=== PATIENT | male | born 1990 | race African-American/Black ===

== ENCOUNTER 2017-12-18 11:49 | Inpatient (IN) ==
--- NOTE | 2017-12-18 15:43 | P.CONIM ---
History of Present Illness Service: [facility] Reason for Consult: Hypertension Primary Care Provider: UNKNOWN History of Present Illness: 27-year-old male admitted to the psychiatric unit for psychosis. Hospitalist service consulted for hypertension. The patient is currently paranoid and history is limited. Regarding hypertension, the patient reports he was told he had hypertension in the past but he never took any medications. He is somewhat paranoid and does not want to talk about the circumstances regarding his admission to the hospital. Review of Systems other (Patient is uncooperative.) [facility] - Medical History Medical History: Medical History (Last Updated 12/18/17 @ 15:38 by Michael Goodwin MD) Hypertension - Surgical History Surgical History: Surgical History (Last Updated 12/18/17 @ 15:38 by Michael Goodwin MD) H/O abdominal surgery - Family History Family History: Family History (Last Updated 12/18/17 @ 15:38 by Michael Goodwin MD) Other Family history non-contributory - Tobacco History Smoking Status: Refused to answer - Alcohol History How Often Do You Have a Drink Containing Alcohol: Unable to Obtain - Substance Use History Substance History: Unable to Obtain - Travel History Recent Travel in the [place] Within the Last 8 Weeks: No Recent Travel Out of the Country Within the Last 8 Weeks: No Medications and Allergies Allergies Allergy/AdvReac Type Severity Reaction Status Date / Time No Known Allergies Allergy Unverified 12/18/17 14:15 Exam Vital signs: Vital Signs 12/18/17 14:04 Temperature 98.2 F Pulse Rate 78 Respiratory Rate 18 Blood Pressure 176/86 H Pulse Oximetry 99 Intake & Output 12/17/17 12/18/17 12/18/17 18:59 06:59 18:59 Weight 118 kg Other: Weight On Admission 118 kg Narrative: GENERAL: Obese male in no acute distress, defiant CARDIOVASCULAR: Normal rate and regular rhythm without murmurs, gallops, or rubs. RESPIRATORY: Good respiratory efforts. Breath sounds equal and clear to auscultation bilaterally. GASTROINTESTINAL: Abdomen soft, non-tender, non-distended. Normal active bowel sounds MUSCULOSKELETAL: Extremities without cyanosis, or edema. NEURO: Alert & Oriented x4 to person, place, time, situation. Moves all ext x4 PSYCH: Irritable mood Assessment and Plan - Plan 27-year-old male admitted to the psychiatric unit for psychosis. Found to have elevated blood pressure. Patient reports he was told he had borderline hypertension in the past but he never took any medications. Psychosis: - Management per psychiatry Possible untreated hypertension: -He is currently very defiant and not amenable to start medications. I suspect his blood pressure will likely improve once psychosis is better controlled. - For now my recommendations is to continue to monitor. If his blood pressure is consistently above 160/90 and he is agreeable to treatment, we would consider starting him on low-dose amlodipine 5 mg daily. For now will order clonidine as needed for blood pressure greater than 180/100. He is stable from a medical standpoint, therefore will sign off. Discussed Condition With: RN and patient
[2017-12-18] MEDS ORDERED: Aluminum/Magnesium/Simethacone Susp 30 ML UDC PO PRN (15:51)
[2017-12-18] MEDS ORDERED: Acetaminophen 325 MG Tablet PO PRN (15:51)
[2017-12-18] MEDS ORDERED: Haloperidol Inj 5 MG/ML Ampul IM ONE ×2 (20:00→21:00)
[2017-12-18] MEDS: Senna/Docusate Sodium 8.6/50 MG Tablet PO SCH (22:00)
[2017-12-18] MEDS: Ibuprofen 600 MG Tablet PO SCH (22:02)
[2017-12-19] MEDS: Ibuprofen 600 MG Tablet PO SCH (05:19)
[2017-12-19 08:44] LABS: Calcium 9.1 mg/dL (8.5-10.1); Carbon Dioxide 30.3 meq/L (21.0-32.0); Potassium 3.5 meq/L (3.5-5.1)
[2017-12-19 08:47] LABS: Chol/HDL Ratio 4.71 Ratio; HDL Cholesterol 47.7 mg/dL (40.0-60.0)
--- NOTE | 2017-12-19 09:30 | P.HPPSY ---
Provisional Diagnosis Admission Date: December 18, 2017 13:58 [place] I.: 1. Brief psychotic disorder Rule out primary psychotic illness or mood disorder with psychotic features Rule out adjustment reaction with other symptoms Rule out substance-induced psychotic disorder Rule out psychosis due to a general medical or neurological condition 2. Cannabis abuse [place] II.: Deferred Competence Certification of Person's Competence To Provide Express and Informed Consent I have personally examined Chandni Mac, a person being served at [facility] on, December 19, 2017 0930. Express and informed consent means consent voluntarily given in writing, by a competent person, after sufficient explanation and disclosure of the subject matter involved to enable the person to make a knowing and willful decision without any element of force, fraud, deceit, duress, or other form of constraint or coercion. This person is 18 years of age or older, is not now known to be incompetent to consent to treatment with a guardian advocate, and does not have a health care surrogate or proxy currently making medical treatment decisions. I have found this person to be one of the following: [] Competent to provide express and informed consent, as defined above, for voluntary admission to this facility and is competent to provide express and informed consent for treatment. He/she has the consistent capacity to make well reasoned, willful, and knowing decisions concerning his or her medical or mental health treatment. The person fully and consistently understands the purpose of the admission for examination/placement and is fully capable of personally exercising all rights assured [place] [X] Incompetent to provide express and informed consent to voluntary admission, and this is incompetent to provide express and informed consent to treatment. The person must be transferred to involuntary status and a petition for a guardian advocate filed with the Circuit Court. [] Refusing to provide express and informed consent to voluntary admission but is competent to provide express and informed consent for treatment. The person must be discharged or transferred to involuntary status. Form shall be completed within 24 hours of a person's arrival at the receiving facility and filed in the clinical record of each person: 1. Admitted on a voluntary basis 2. Permitted to provide express and informed consent to his/her own treatment 3. Allowed to transfer from involuntary to voluntary status 4. Prior to permitting a person to consent to his or her own treatment after having been previously found incompetent to consent to treatment. History of Present Illness Capacity: Lacks capacity Chief Complaint: Psychosis History of Present Illness: Mr. Mac is a 27 year-old male of uncertain past psychiatric history transferred from [facility] under a [place] act. Documentation from outside hospital reviewed. Patient presented there with reports of no sleep times 3 days. Stressor was apparently recent passing of mother and aunt. Reviewing our electronic medical record, I see no previous psychiatric visits within our system. Patient seen and examined with nurse and therapist. Chart reviewed. Case discussed with nursing staff. On my examination today, the patient presents as irritable and paranoid. He is fairly disheveled. He rambles on nondenominational themes. At one point he yells at unseen demons, saying "shut up demons! Satan! " He tells me "in a free world this stuff is about choice. I'm being tested." He denies suicidal ideation but says "if I had a gun right now, I'd kill y' all right now." He endorses hallucinations "for a while" but cannot describe the content of these hallucinations. He does appear internally stimulated. Affect is irritable and dysphoric. Psychiatric interview is limited because of the patient's degree of psychiatric symptomatology. No acute physical complaints. I returned to the unit in response to a CODE MESSER called on this patient and found him agitated and psychotic, pacing in the hallway. He appears to try to swat at nurse when she endeavors to medicate him with Ativan for CIWA. I ordered patient medicated with Haldol, Ativan and Benadryl IM ETO to good effect. Past psychiatric history: Patient is likely an unreliable historian. When asked about a history of psychiatric diagnosis he replies "not that I know of." He does endorse a history of outpatient psychiatric care. He also endorses a history of suicide attempts but cannot provide specifics. He is noncommittal when asked about a history of violence. He denies a history of psychiatric admissions. Family history: The patient cannot provide any family psychiatric history. Chemical dependency history: The patient admits to abuse of cannabis. When asked specifically about synthetic drugs such as flakka or K2/spice, the patient does seem to indicate that he may have tried these agents in the past. Regarding alcohol the patient says "I drink a lot." He is unable to tell me if he has a history of DTs or seizures. Social history: Patient unable to provide due to degree of psychiatric symptomatology. Past medical history: Patient unable to provide due to degree of psychiatric symptomatology. Allergies: No reported allergies. I endeavored to obtain collateral information from the patient's father at both numbers listed in the EMR. The home number kept wringing with no opportunity to leave a voicemail. The work number was answered by manager of international who reported that no one by father's name worked at that business. I was able to reach patient's , Mis Grider at [phone]. She relates that patient had one previous episode of what sounds like psychosis or perhaps delirium in connection with pain medications prescribed for knee pain in 2011. Otherwise, patient has no previous psychiatric history, nor is there any family history of psychiatric illness. does not suspect significant contribution from substance use. She notes that patient began to decompensate last Tuesday after learning that his aunt, who several years ago, may have from a drug overdose (although Ms. Grider does not believe this is true, patient was reportedly told this by a cousin). After learning of this information, patient began to sleep poorly and displayed a nondenominational preoccupation in excess of his subculture's norms. He reportedly began to believe that family members were in league with Luciana. is willing to act as HCS and provides consent for medications and treatment as outlined below. She notes that patient has metal in wrist and knee and so MRI likely is not possible. Ms. Grider does request to teleconference in another relative who works as a [employer] counselor, Areli, towards the end of the conversation to assist Ms. Grider in her decision-making. In total, I spent ~22min in telephone consultation with patient's . - Inpatient Certification I certify that the inpatient services were ordered in accordance with Medicare regulations governing the order. This includes certification that hospital inpatient services are reasonable and necessary and in the case of services not specified as inpatient-only under 42 CFR 419.22(n), that they are appropriately provided as inpatient services in accordance to with the 2-midnight benchmark under 43 CFR 412.3(e) I certify that inpatient psychiatric hospital services are medically necessary. Evaluation and treatment and/or diagnostic testing are expected to improve the patient's condition. The patient needs on a daily basis, active treatment furnished directly by or requiring the supervision of inpatient psychiatric facility personnel. Estimated Total Length of Stay (Days): 7 Plans for Post Hospital Care: Not yet determined [facility] - Medical History Medical History: Medical History (Last Updated 12/18/17 @ 15:38 by Michael Goodwin MD) Hypertension - Surgical History Surgical History: Surgical History (Last Updated 12/18/17 @ 15:38 by Michael Goodwin MD) H/O abdominal surgery - Family History Family History: Family History (Last Updated 12/18/17 @ 15:38 by Michael Goodwin MD) Other Family history non-contributory - Tobacco History Smoking Status: Refused to answer - Alcohol History How Often Do You Have a Drink Containing Alcohol: Unable to Obtain - Substance Use History Substance History: Unable to Obtain - Travel History Recent Travel in the [facility] Within the Last 8 Weeks: No Recent Travel Out of the Country Within the Last 8 Weeks: No Quality Measures - Psychiatric History Psychological trauma history: Unable to obtain from patient due to psychiatric symptomatology - Patient Strengths Patient's strengths (minimum of 2): In a monitored setting. Supportive family. Medications and Allergies Active Medications: Active Medications Acetaminophen (Tylenol) 650 mg PO Q4H PRN PRN Reason: Pain 1-5 or Temp >101F Al Hydrox/Mg Hydrox/Simethicone (Mag-Al Plus Susp Liq) 30 ml PO Q6H PRN PRN Reason: DYSPEPSIA Clonidine HCl (Catapres) 0.1 mg PO Q6H PRN PRN Reason: SEE LABEL COMMENTS Diphenhydramine HCl (Benadryl) 50 mg PO HS PRN PRN Reason: INSOMNIA Ibuprofen (Motrin) 600 mg PO Q8HR [facility] Last Admin: 12/19/17 05:19 Dose: 600 mg Nicotine (Habitrol 21 Mg Patch.24 Hr) 1 patch T-DERMAL DAILY [facility] Last Admin: 12/18/17 16:30 Dose: Not Given Patch Removal (Remove Old Patch) 1 each T-DERMAL DAILY [facility] Senna/Docusate Sodium (Sommer-Colace) 1 tab PO BID [facility] Last Admin: 12/18/17 22:00 Dose: Not Given Allergies Allergy/AdvReac Type Severity Reaction Status Date / Time No Known Allergies Allergy Unverified 09/30/18 14:15 Results - Labs CBC & Chem 7: 12/19/17 07:25 Labs: Laboratory Results - last 24 hr 12/19/17 07:25 Sodium 140 Potassium 3.5 Chloride 101 Carbon Dioxide 30.3 Anion Gap 9 BUN 14 Creatinine 1.25 Estimated GFR 83 L Random Glucose 87 Calcium 9.1 Triglycerides 65 Cholesterol 225 H LDL Cholesterol, Calc 164 H HDL Cholesterol 47.7 Cholesterol/HDL Ratio 4.71 Labs from outside hospital reviewed: CBC unremarkable. BMP unremarkable. LFTs reveals mild transaminitis with AST of 45. Toxicology positive for cannabinoids. Alcohol level undetectable. Exam Vital signs: Vital Signs 12/18/17 14:04 12/19/17 06:00 Temperature 98.2 F 97.9 F Pulse Rate 78 109 H Respiratory Rate 18 17 Blood Pressure 176/86 H 181/102 H Pulse Oximetry 99 98 Intake & Output 12/18/17 12/19/17 12/19/17 18:59 06:59 18:59 Weight 118 kg Other: Weight On Admission 118 kg Narrative: Physical examination completed by hospitalist oracle distribution consultant. On my examination today, the patient appears to be in no acute physical distress. No motor abnormalities noted. No signs of intoxication or withdrawal noted. Labs and vital signs reviewed. Mental Status Examination Appearance: Disheveled Consciousness: Alert, Vigilant Orientation: Person (At least) Motor Activity: Normal gait, Other (No motor abnormalities noted.) Speech: Other (Inappropriately loud) Language: Other (Rambling) Fund of Knowledge: Inadequate Attention and Concentration: Easily distracted Memory: Impaired (Psychosis interferes) Mood: Angry, Irritable Affect: Irritable, Other (Dysphoric) Thought Process & Associations: Tangential Thought Content: Hallucinations, Delusional Hallucination Type: Other (Endorses vague hallucinations as noted above and does appear internally stimulated) Delusion Type: Paranoid, Other (Confucianist) Suicidal Ideation: No Suicidal Plan: No Suicidal Intention: No Homicidal Ideation: Yes Homicidal Plan: Yes Homicidal Intention: No Insight: Poor Judgment: Poor Assessment and Plan - Assessment (1) Brief psychotic disorder Code(s): F23 - Brief psychotic disorder Status: Acute (2) Cannabis abuse Code(s): F12.10 - Cannabis abuse, uncomplicated Status: Acute - Plan Plan: 27-year-old male with psychiatric history as detailed above who presents in transfer from outside hospital under a [place] act. On my examination today, the patient presents as floridly psychotic and has been apparently decompensating over the last several days per collateral information from patient's . He does have a history of 1 previous questionable episode of psychosis or perhaps delirium several years ago in response to pain medications. Differential diagnosis for her current episode of psychosis is as listed above. Patient requires psychiatric hospitalization at this time for safety, observation and stabilization. Admit inpatient. Involuntary status. I have completed first opinion. Consult for second opinion. Request healthcare surrogate and guardian advocate. For empiric management of patient's psychosis I will initiate Zyprexa 10 mg at bedtime by mouth with IM backup. Check EKG for QTc. Atarax as needed for anxiety. Melatonin as needed for sleep. I have reviewed the R/B/A for medications with patient's healthcare surrogate including the metabolic and motor side effects of antipsychotic therapy. CIWA scale with Ativan for the management of any withdrawal. Thiamine and folate. Seizure precautions. Hospitalist input appreciated. Initiate psychosis workup including Head CT and laboratory workup. Vitals every shift. Counselor to see. Disposition planning. Estimated length of stay: 5-7 days. Justification for Continued Inpatient Stay: See above Discharge Planning: Pending psychiatric stabilization Request Healthcare Surrogate/Guardian Advocate?: Yes
[2017-12-19] MEDS ORDERED: LORazepam 1 MG Tablet PO PRN (09:42)
[2017-12-19] MEDS ORDERED: Haloperidol Inj 5 MG/ML Ampul IV.PUSH PRN (09:42)
[2017-12-19 10:12] LABS: Albumin 4.3 g/dL (3.4-5.0)
[2017-12-19 10:24] LABS: Thyroid Stimulating Hormone 0.852 uIU/mL (0.358-3.740)
[2017-12-19] MEDS ORDERED: Haloperidol Inj 5 MG/ML Ampul IM ONE (10:25)
[2017-12-19] MEDS: Senna/Docusate Sodium 8.6/50 MG Tablet PO SCH ×2 (12:30→20:41)
--- NOTE | 2017-12-19 15:22 | P.CONPSY ---
Provisional Diagnosis Admission Date: December 18, 2017 13:58 [place] I.: 1. Brief psychotic disorder Rule out primary psychotic illness or mood disorder with psychotic features Rule out adjustment reaction with other symptoms Rule out substance-induced psychotic disorder Rule out psychosis due to a general medical or neurological condition 2. Cannabis abuse [place] II.: Deferred History of Present Illness Service: Psychiatry Primary Care Provider: UNKNOWN History of Present Illness: Mr. Mac is a 27 year-old male of uncertain past psychiatric history transferred from [facility] under a [place] act. Documentation from outside hospital reviewed. Patient presented there with reports of no sleep times 3 days. Stressor was apparently recent passing of mother and aunt. Reviewing our electronic medical record, I see no previous psychiatric visits within our system.Patient seen and examined with nurse and therapist. Chart reviewed. Case discussed with nursing staff. On my examination today, the patient presents as irritable and paranoid. He is fairly disheveled. He rambles on yazidism themes. At one point he yells at unseen demons, saying "shut up demons! Satan!" He tells me "in a free world this stuff is about choice. I'm being tested." He denies suicidal ideation but says "if I had a gun right now, I'd kill y'all right now." He endorses hallucinations "for a while" but cannot describe the content of these hallucinations. He does appear internally stimulated. Affect is irritable and dysphoric. Psychiatric interview is limited because of the patient's degree of psychiatric symptomatology. No acute physical complaints. I returned to the unit in response to a CODE MESSER called on this patient and found him agitated and psychotic, pacing in the hallway. He appears to try to swat at nurse when she endeavors to medicate him with Ativan for CIWA. I ordered patient medicated with Haldol, Ativan and Benadryl IM ETO to good effect. The patient is a 27-year-old -[place] man, with an unknown psychiatric history, who was admitted in [place] transfer from an external hospital on the [place] act. He was consulted to me for second opinion. I found the patient in his room, deeply asleep, he was medicated recently due to aggressive behavior. He was arousable, but quite disorganized, not making any sense, very incoherent and disorganized unable to provide any meaningful information for the second opinion, but evidently psychotic. [facility] - Medical History Medical History: Medical History (Last Updated 12/18/17 @ 15:38 by Michael Goodwin MD) Hypertension - Surgical History Surgical History: Surgical History (Last Updated 12/18/17 @ 15:38 by Michael Goodwin MD) H/O abdominal surgery - Family History Family History: Family History (Last Updated 12/18/17 @ 15:38 by Michael Goodwin MD) Other Family history non-contributory - Tobacco History Smoking Status: Refused to answer - Alcohol History How Often Do You Have a Drink Containing Alcohol: Unable to Obtain - Substance Use History Substance History: Unable to Obtain - Travel History Recent Travel in the [place] Within the Last 8 Weeks: No Recent Travel Out of the Country Within the Last 8 Weeks: No Medications and Allergies Active Medications: Active Medications Acetaminophen (Tylenol) 650 mg PO Q4H PRN PRN Reason: Pain 1-5 or Temp >101F Al Hydrox/Mg Hydrox/Simethicone (Mag-Al Plus Susp Liq) 30 ml PO Q6H PRN PRN Reason: DYSPEPSIA Clonidine HCl (Catapres) 0.1 mg PO Q6H PRN PRN Reason: SEE LABEL COMMENTS Diphenhydramine HCl (Benadryl) 50 mg PO HS PRN PRN Reason: INSOMNIA Flumazenil (Romazecon Inj) 0.2 mg IV.PUSH Q1M PRN PRN Reason: OVERSEDATION Folic Acid (Folic Acid) 1 mg PO DAILY [facility] Stop: 12/25/17 08:59 Haloperidol Lactate (Haldol Inj) 1 mg IV.PUSH Q15M PRN PRN Reason: for severe agitation Hydroxyzine HCl (Atarax) 50 mg PO Q6H PRN PRN Reason: ANXIETY Ibuprofen (Motrin) 600 mg PO Q8HR [facility] Last Admin: 12/19/17 05:19 Dose: 600 mg Lorazepam (Ativan) 1 mg PO Q4H PRN PRN Reason: for CIWA 8-10 Lorazepam (Ativan) 2 mg PO Q2H PRN PRN Reason: for CIWA 11-14 Lorazepam (Ativan Inj) 2 mg IV.PUSH Q1H PRN PRN Reason: for CIWA 15-20 Lorazepam (Ativan Inj) 2 mg IV.PUSH Q15M PRN PRN Reason: for CIWA > 20 Lorazepam (Ativan Inj) 1 mg IV.PUSH Q4H PRN PRN Reason: for CIWA 8-10 Lorazepam (Ativan Inj) 2 mg IV.PUSH Q2H PRN PRN Reason: for CIWA 11-14 Melatonin (Melatonin) 5 mg PO HS PRN PRN Reason: INSOMNIA Multivitamins/Minerals (Theragran-M) 1 tab PO DAILY [facility] Stop: 12/25/17 08:59 Nicotine (Habitrol 21 Mg Patch.24 Hr) 1 patch T-DERMAL DAILY [facility] Last Admin: 12/19/17 12:29 Dose: Not Given Olanzapine (Zyprexa Inj) 10 mg IM HS PRN PRN Reason: REFUSES PO ZYPREXA Olanzapine (Zyprexa Zydis Odt) 10 mg PO HS OSVALDO Patch Removal (Remove Old Patch) 1 each T-DERMAL DAILY [facility] Last Admin: 12/19/17 12:30 Dose: Not Given Senna/Docusate Sodium (Sommer-Colace) 1 tab PO BID [facility] Last Admin: 12/19/17 12:30 Dose: Not Given Thiamine HCl (Vitamin B1) 100 mg PO DAILY [facility] Allergies Allergy/AdvReac Type Severity Reaction Status Date / Time No Known Allergies Allergy Unverified 12/18/17 14:15 Exam Vital signs: Vital Signs 12/19/17 06:00 Temperature 97.9 F Pulse Rate 109 H Respiratory Rate 17 Blood Pressure 181/102 H Pulse Oximetry 98 Intake & Output 12/18/17 12/19/17 12/19/17 18:59 06:59 18:59 Weight 118 kg Other: Weight On Admission 118 kg Mental Status Examination Appearance: Disheveled Consciousness: Alert, Vigilant Orientation: Person (At least) Motor Activity: Normal gait, Other (No motor abnormalities noted.) Speech: Other (Inappropriately loud) Language: Other (Rambling) Fund of Knowledge: Inadequate Attention and Concentration: Easily distracted Memory: Impaired (Psychosis interferes) Mood: Angry, Irritable Affect: Irritable, Other (Dysphoric) Thought Process & Associations: Tangential Thought Content: Hallucinations, Delusional Hallucination Type: Other (Endorses vague hallucinations as noted above and does appear internally stimulated) Delusion Type: Paranoid, Other (Voodoo) Suicidal Ideation: No Suicidal Plan: No Suicidal Intention: No Homicidal Ideation: Yes Homicidal Plan: Yes Homicidal Intention: No Insight: Poor Judgment: Poor Assessment and Plan - Assessment (1) Brief psychotic disorder Code(s): F23 - Brief psychotic disorder Status: Acute (2) Cannabis abuse Code(s): F12.10 - Cannabis abuse, uncomplicated Status: Acute - Plan Plan: I have seen and examined this patient, reviewed documentation, I agree and concur with Dr. Alexander assessment and plan. Consult appreciated Justification for Continued Inpatient Stay: Continue psychiatric admission Request Healthcare Surrogate/Guardian Advocate?: Yes
[2017-12-19 16:50] LABS: Hemoglobin A1c 5.6 % (4.3-6.0)
[2017-12-19 17:01] LABS: Thyroid Stimulating Hormone 0.848 uIU/mL (0.358-3.740)
[2017-12-19] MEDS: OLANZapine 10 MG ODT Tablet PO SCH (20:41)
[2017-12-19 21:40] LABS: CKMB Percent 0.2 % (0.0-4.0); Creatine Kinase MB 3.2 ng/mL (0.5-3.6)
[2017-12-20] MEDS: Senna/Docusate Sodium 8.6/50 MG Tablet PO SCH ×2 (08:26→20:25)
[2017-12-20] MEDS: Multivitamin/Minerals Therapeutic Tablet PO SCH (08:27)
[2017-12-20] MEDS: Folic Acid 1 MG Tablet PO SCH (08:27)
[2017-12-20 12:28] LABS: Amphetamine Urine With Conf Neg (Neg); Benzodiazepine Urine With Conf Neg (Neg)
--- NOTE | 2017-12-20 13:15 | P.PNPSY ---
Subjective Chief Complaint: Psychosis Remarks: Reviewed electronic medical records and discussed case with staff. Follow-up was conducted in the day room with valente Clancy present. Patient is polite and appropriate throughout the conversation. States that he was up and down all night but his appetite is been good. Last night staff reported that he was repetitive and preoccupied with using the phone. They stated there was some confusion. However, today his symptoms seem somewhat better. Mental Status Examination Appearance: Disheveled Consciousness: Alert, Vigilant Orientation: Person (At least) Motor Activity: Normal gait, Other (No motor abnormalities noted.) Speech: Other (Inappropriately loud) Language: Other (Rambling) Fund of Knowledge: Inadequate Attention and Concentration: Easily distracted Memory: Impaired (Psychosis interferes) Mood: Angry, Irritable Affect: Irritable, Other (Dysphoric) Thought Process & Associations: Tangential Thought Content: Hallucinations, Delusional Hallucination Type: Other (Endorses vague hallucinations as noted above and does appear internally stimulated) Delusion Type: Paranoid, Other (Alevism) Suicidal Ideation: No Suicidal Plan: No Suicidal Intention: No Homicidal Ideation: Yes Homicidal Plan: Yes Homicidal Intention: No Insight: Poor Judgment: Poor Assessment and Plan - Assessment (1) Brief psychotic disorder Code(s): F23 - Brief psychotic disorder Status: Acute - Plan Plan: Patient will be reevaluated tomorrow by the attending psychiatrist. Continue with current treatment plan. Justification for Continued Inpatient Stay: Moving this patient to a less restrictive environment would likely result in decompensation. Request Healthcare Surrogate/Guardian Advocate?: Yes
[2017-12-20] MEDS: Melatonin 5 MG Tablet PO PRN (20:16)
[2017-12-20] MEDS: OLANZapine 10 MG ODT Tablet PO SCH (20:16)
[2017-12-21] MEDS: Multivitamin/Minerals Therapeutic Tablet PO SCH (08:10)
[2017-12-21] MEDS: Senna/Docusate Sodium 8.6/50 MG Tablet PO SCH ×2 (08:10→21:14)
[2017-12-21] MEDS: Folic Acid 1 MG Tablet PO SCH (08:10)
--- NOTE | 2017-12-21 08:42 | CT ---
EXAM DATE: 12/21/2017 8:09 AM EDT AGE/SEX: 27 years / Male INDICATIONS: Altered mental status CLINICAL DATA: This is the patient's initial encounter. Patient reports that signs and symptoms have been present for 2 days and indicates a pain score of 0/10. MEDICAL/SURGICAL HISTORY: Hypertension. None. RADIATION DOSE: 46.55 CTDI (mGy) COMPARISON: No prior exams available for comparison. TECHNIQUE: CT of the head without contrast. Using automated exposure control and adjustment of the mA and/or kV according to patient size, radiation dose was kept as low as reasonably achievable to ob tain optimal diagnostic quality images. DICOM format image data is available electronically for revi ew and comparison. FINDINGS: Cerebrum: The ventricles are normal for age. No evidence of midline shift, mass lesion, hemorrhage or acute infarction. No extraaxial fluid collections are seen. Posterior Fossa: The cerebellum and brainstem are intact. The 4th ventricle is midline. The cerebe llopontine angle is unremarkable. Extracranial: The visualized portion of the orbits is intact. Skull: The calvaria is intact. No evidence of skull fracture. CONCLUSION: 1. Negative for an acute process. . Electronically signed by: Jake Paez MD 12/21/2017 8:41 AM EDT
--- NOTE | 2017-12-21 10:13 | P.PNPSY ---
Subjective Chief Complaint: Psychosis Remarks: Patient seen and examined with nurse. Chart reviewed. Case discussed with nursing staff. Patient noted to be respectful and presenting no behavioral problem. On my examination today, the patient is cooperative with interview. He denies the psychiatric ROS and insists "I am fine, sir." He denies any SI or HI. Denies any AVH. Denies any side effects from medications. No physical complaints. Vital Signs Temp Pulse Resp BP Pulse Ox 12/21/17 05:54 87 16 164/106 H 100 12/20/17 16:00 99.0 F 88 18 137/97 H 97 Laboratory Results - last 24 hr 12/21/17 11:08 Sodium 138 Potassium 4.0 Chloride 100 Carbon Dioxide 29.6 Anion Gap 8 BUN 11 Creatinine 1.11 Estimated GFR Greater than 89 Random Glucose 88 Calcium 9.4 Total Creatine Kinase 1121 H CK-MB (CK-2) 1.2 CK-MB (CK-2) % 0.1 Labs reviewed. CK downtrending. No evidence of renal compromise. First break psychosis workup so far unrevealing. BRIAN and thiamine level pending. Impressions Head CT 12/21/17 00:00 CONCLUSION: 1. Negative for an acute process. Review of Systems All other systems reviewed negative except as stated in HPI Mental Status Examination Appearance: Appropriate (Fair grooming) Consciousness: Alert Orientation: Person, Place (At least) Motor Activity: Normal gait, Other (No hand tremor, no cogwheeling, no dystonia , no dyskinesia, no other motor abnormalities noted.) Speech: Unremarkable Language: Adequate Fund of Knowledge: Adequate Attention and Concentration: Adequate Memory: Unremarkable Mood: Other (Calm) Affect: Blunt Thought Process & Associations: Intact Thought Content: Appropriate Hallucination Type: None Delusion Type: Other (No terrell delusions but suspect some possible underlying paranoia) Suicidal Ideation: No Suicidal Plan: No Suicidal Intention: No Homicidal Ideation: No Homicidal Plan: No Homicidal Intention: No Insight: Poor Judgment: Poor Assessment and Plan - Assessment (1) Brief psychotic disorder Code(s): F23 - Brief psychotic disorder Status: Acute (2) Cannabis abuse Code(s): F12.10 - Cannabis abuse, uncomplicated Status: Acute - Plan Plan: Titrate Zyprexa to 15 mg at bedtime to target residual psychiatric symptoms. I do suspect that the patient may be minimizing his symptoms somewhat. Nursing has made me aware of some incontinence of urine, and there may be a volitional component to this. I will check a urinalysis. Hospitalist consultation for elevated blood pressure and elevated CK, input appreciated. I will lift restriction to the short hallway as patient's behavior is now appropriate. Continue other medications and care as ordered. Patient may sign voluntary. Justification for Continued Inpatient Stay: Medication changes. Concern for ongoing impairment in reality construction. Risk for decompensation in less restrictive environment. Discharge Planning: Pending psychiatric stabilization Request Healthcare Surrogate/Guardian Advocate?: Yes
[2017-12-21 11:58] LABS: Anion Gap 8 meq/L (5-15); Blood Urea Nitrogen 11 mg/dL (7-18); Calcium 9.4 mg/dL (8.5-10.1); Carbon Dioxide 29.6 meq/L (21.0-32.0); Chloride 100 meq/L (98-107); Glomerular Filtration Rate Greater Than 89 mL/min (>89); Glucose,Random 88 mg/dL (74-106); Sodium 138 meq/L (136-145)
[2017-12-21 12:13] LABS: Creatine Kinase 1121 U/L (39-308)
[2017-12-21 13:58] LABS: CKMB Percent 0.1 % (0.0-4.0); Creatine Kinase MB 1.2 ng/mL (0.5-3.6)
--- NOTE | 2017-12-21 15:02 | P.PN ---
Subjective Interval history: Follow up for elevated BP and CPK: Pt. initially psychotic, BP elevated up to 180s. Was put on Clonidine PRN. Psychosis has improved. BP trending down however still not optimal SBP 150 to 160s, DBP 90-100s. Pt. with prior hx but no meds before. Labs done yesterday, CPK initially 1595, today down to 1121. Has been drinking water, no muscle pain, no dark urine observed. Examined in dining room, sitting and reading a book. Calm, cooperative. Denies any CP, no muscle pain, no SOB, eating well. No fever. Physical Exam Vital signs: Vital Signs 12/20/17 16:00 12/21/17 05:54 Temperature 99.0 F Pulse Rate 88 87 Respiratory Rate 18 16 Blood Pressure 137/97 H 164/10 H Pulse Oximetry 97 100 Narrative: GENERAL: Obese male in no acute distress, defiant CARDIOVASCULAR: Normal rate and regular rhythm without murmurs, gallops, or rubs. RESPIRATORY: Good respiratory efforts. Breath sounds equal and clear to auscultation bilaterally. GASTROINTESTINAL: Abdomen soft, non-tender, non-distended. Normal active bowel sounds MUSCULOSKELETAL: Extremities without cyanosis, or edema. NEURO: Alert & Oriented x4 to person, place, time, situation. Moves all ext x4 PSYCH: Calm, cooperative. Results - Labs CBC & Chem 7: 12/21/17 11:08 Laboratory Results - last 24 hr 12/21/17 11:08 Sodium 138 Potassium 4.0 Chloride 100 Carbon Dioxide 29.6 Anion Gap 8 BUN 11 Creatinine 1.11 Estimated GFR Greater than 89 Random Glucose 88 Calcium 9.4 Total Creatine Kinase 1121 H CK-MB (CK-2) 1.2 CK-MB (CK-2) % 0.1 - Imaging Impressions Head CT 12/21/17 00:00 CONCLUSION: 1. Negative for an acute process. . Assessment and Plan - Assessment (1) Elevated blood pressure reading Code(s): R03.0 - Elevated blood-pressure reading, without diagnosis of hypertension Status: Acute (2) Rhabdomyolysis Code(s): M62.82 - Rhabdomyolysis Status: Acute (3) Unspecified psychosis Code(s): F29 - Unspecified psychosis not due to a substance or known physiological condition Status: Acute - Plan 27-year-old male admitted to the psychiatric unit for psychosis. Found to have elevated blood pressure. Patient reports he was told he had borderline hypertension in the past but he never took any medications. Psychosis, improving. - Management per psychiatry, On Zyprexa Possible untreated hypertension, initially 180s, has trended down with improvement in psychosis. However, DBP >100s, SBP around 150 to 160s -will start Norvasc 5 mg po daily. Agreeable with taking -Continue Clonidine as needed for blood pressure greater than 180/100. Rhabdomyolysis poss secondary to psychosis and agitation, illegal drug use ( UDT + cannabis) CPK trending down 1595>>1121 Renal function stable -Follow BMP and CPK in am -Continue to encourage PO fluids No DVT prophylaxis needed, pt. ambulatory Will follow up on BMP and CPK in am (3) Unspecified psychosis Qualifiers: Psychosis type: unspecified psychosis type Qualified Code(s): F29 - Unspecified psychosis not due to a substance or known physiological condition
[2017-12-21 17:57] LABS: Anti-Nuclear Antibody Screen Neg (Neg)
[2017-12-21] MEDS: Melatonin 5 MG Tablet PO PRN (20:47)
[2017-12-21] MEDS ORDERED: OLANZapine 15 MG ODT Tablet PO SCH (21:00)
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
[2017-12-22 11:40] LABS: Bilirubin,Urine Negative (Negative); Clarity,Urine Clear (Clear); Color,Urine Yellow (Yellw/Straw); Glucose,Urine (UA) Negative (Negative); Leukocyte Esterase,Urine Negative (Negative); Mucus,Urine Few /lpf (Occasional); Nitrite,Urine Negative (Negative); Specific Gravity,Urine 1.014 (1.002-1.035)
[2017-12-22] MEDS: Folic Acid 1 MG Tablet PO SCH (11:48)
[2017-12-22] MEDS: Senna/Docusate Sodium 8.6/50 MG Tablet PO SCH ×2 (11:48→21:03)
[2017-12-22] MEDS: Multivitamin/Minerals Therapeutic Tablet PO SCH (11:51)
[2017-12-22] MEDS: amLODIPine 5 MG Tablet PO SCH (11:51)
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
[2017-12-22] MEDS ORDERED: Haloperidol Inj 5 MG/ML Ampul IM STA (13:12)
[2017-12-22] MEDS: OLANZapine 20 MG Tab.Rapdis PO SCH (21:03)
[2017-12-23] MEDS: Folic Acid 1 MG Tablet PO SCH (08:39)
[2017-12-23] MEDS: Senna/Docusate Sodium 8.6/50 MG Tablet PO SCH ×2 (08:40→21:56)
[2017-12-23] MEDS: Multivitamin/Minerals Therapeutic Tablet PO SCH (08:40)
[2017-12-23] MEDS: amLODIPine 5 MG Tablet PO SCH (08:40)
--- NOTE | 2017-12-23 09:23 | P.PNPSY ---
Subjective Chief Complaint: Psychosis Remarks: Patient seen and examined with counselor. Chart reviewed. Case discussed with nursing staff. Case discussed in treatment team. On my exam, I find the patient standing in the short hallway of the 2700 unit completely naked. His paper gown is crumpled on the floor. He is reading the Bible and appears internally stimulated. He remains paranoid. He says that he wants to keep reading the Bible while we are talking. When I ask why he has disrobed, he replies that there is a reason but that he cannot tell it to me. He does express hope for discharge, and we discuss behavioral expectations for discharge. No evident side effects from medications. No physical complaints. Vital Signs Temp Pulse Resp BP Pulse Ox 12/23/17 05:23 98.0 F 85 17 112/88 100 Laboratory Results - last 24 hr 12/20/17 12/20/17 06:00 11:38 Thiamine 103 Ur Buprenorphine Negative Ur Heroin Screen Negative Urine Oxycodone Negative Ur Methadone Negative U Hydromorphone Confirm Negative Urine Fentanyl Negative Urine Gabapentin Negative Ur Phencyclidine (PCP) Negative Urine MDPV Negative Ur MDMA & Metabolites Negative U Cannabinoids Confirm Ur Synth THC (K2) Negative Labs reviewed. Review of Systems unobtainable due to mental condition Mental Status Examination Appearance: Other (Naked) Consciousness: Alert Orientation: Person (at least) Motor Activity: Normal gait, Other (No hand tremor, no dystonia, no dyskinesia noted. No other motor abnormalities noted.) Speech: Unremarkable Language: Other (Rambling) Fund of Knowledge: Adequate Attention and Concentration: Adequate Memory: Unremarkable Mood: Oppositional, Irritable Affect: Irritable Thought Process & Associations: Tangential Thought Content: Bizarre thinking, Hallucinations, Thought blocking, Delusional Hallucination Type: Other (Frankly internally stimulated) Delusion Type: Paranoid, Other (Religiously preoccupied) Suicidal Ideation: No Homicidal Ideation: No Insight: Poor Judgment: Poor Assessment and Plan - Assessment (1) Brief psychotic disorder Code(s): F23 - Brief psychotic disorder Status: Acute (2) Cannabis abuse Code(s): F12.10 - Cannabis abuse, uncomplicated Status: Acute - Plan Plan: Patient to receive first full dose of Zyprexa 10mg qAM and 20mg qHS today. If this is insufficient to manage psychosis, consider augmenting with a typical antipsychotic. If non-adherence becomes an issue, consider switching to Zyprexa 10mg TID@0900,1500,2100 with IM backup to allow patient to receive full dose IM. Continue to monitor on the high acuity unit. I have encouraged the patient to consider wearing his clothes. I have reordered BMP and CPK. Continue short simmons restriction. Continue other medications and care as ordered. Justification for Continued Inpatient Stay: Impairment in reality construction. Impairment in social function. High risk for decompensation in less restrictive environment. Discharge Planning: Pending psychiatric stabilization. Request Healthcare Surrogate/Guardian Advocate?: Yes
--- NOTE | 2017-12-23 13:50 | P.TTN ---
- Patient Problems Problems: 1. Discharge planning 2. Medication compliance 3. Knowledge deficit 4. Lack of coping skills - Progress Toward Goals Provider Present: Dr. Rufus Alexander (December 23, 2017, patient appears internally stimulated with disorganized thoughts and hinduism preoccupation. Patient remains for further stabilization.) Psychiatric Counselors Present: Hung Hill Jr., [facility] (Patient will return to his residence where he is domiciled with his in the [facility].) Group Spec/RT/OT/MARAVILLA Present: TAIWO Beth (patient is unable to tolerate group at this time.) - Documentation Teaching Recipient: Patient
[2017-12-23] MEDS ORDERED: Haloperidol Inj 5 MG/ML Ampul IM ONE (16:45)
[2017-12-23 20:37] LABS: Calcium 8.7 mg/dL (8.5-10.1); Carbon Dioxide 25.3 meq/L (21.0-32.0); Potassium 3.5 meq/L (3.5-5.1)
[2017-12-23 21:09] LABS: CKMB Percent 0.1 % (0.0-4.0); Creatine Kinase MB 2.4 ng/mL (0.5-3.6)
[2017-12-23] MEDS: OLANZapine 20 MG Tab.Rapdis PO SCH (21:57)
[2017-12-24] MEDS: Folic Acid 1 MG Tablet PO SCH (09:51)
[2017-12-24] MEDS: amLODIPine 5 MG Tablet PO SCH (09:52)
[2017-12-24] MEDS: Senna/Docusate Sodium 8.6/50 MG Tablet PO SCH ×2 (09:52→20:16)
[2017-12-24] MEDS: Multivitamin/Minerals Therapeutic Tablet PO SCH (09:52)
[2017-12-24] MEDS ORDERED: Haloperidol Inj 5 MG/ML Ampul IM ONE (11:00)
[2017-12-24 16:24] LABS: CKMB Percent 0.1 % (0.0-4.0); Creatine Kinase MB 2.3 ng/mL (0.5-3.6)
--- NOTE | 2017-12-24 16:56 | P.PNPSY ---
Subjective Chief Complaint: Psychosis Remarks: Reviewed electronic medical records and discussed case with staff. Follow-up was conducted in patient's room with CALOS Lynn present. I was contacted earlier while on another unit this patient had put his mattress against the door to the 2600 unit and was attempting to kick the door down. Patient was ordered and administered emergency treatment medications. Due to his behavior I am adding Haldol 5 mg twice a day by mouth, IM if he refuses the p.o., per Dr. Alexander's recommendation. Spoke with his Mis, by phone, who consented to this medication change. Preparation of that have ordered an EKG and a CMP. Additionally, due to his creatinine kinase trending upwards a medical consultation has been put in. Anticipate patient will be transferred to a medical floor for IV fluid. Post ETO the patient was seen and reports that he feels "fine". He continues to read his Bible. He was appropriate throughout the follow-up. Mental Status Examination Appearance: Other (Naked) Consciousness: Alert Orientation: Person (at least) Motor Activity: Normal gait, Other (No hand tremor, no dystonia, no dyskinesia noted. No other motor abnormalities noted.) Speech: Unremarkable Language: Other (Rambling) Fund of Knowledge: Adequate Attention and Concentration: Adequate Memory: Unremarkable Mood: Oppositional, Irritable Affect: Irritable Thought Process & Associations: Tangential Thought Content: Bizarre thinking, Hallucinations, Thought blocking, Delusional Hallucination Type: Other (Frankly internally stimulated) Delusion Type: Paranoid, Other (Religiously preoccupied) Suicidal Ideation: No Suicidal Plan: No Suicidal Intention: No Homicidal Ideation: No Homicidal Plan: No Homicidal Intention: No Insight: Poor Judgment: Poor Assessment and Plan - Assessment (1) Brief psychotic disorder Code(s): F23 - Brief psychotic disorder Status: Acute - Plan Plan: Patient will be reevaluated Tuesday by the attending psychiatrist. Continue with current treatment plan. Haldol 5 mg twice a day has been added. Medical has been consulted due to patient's increasing creatinine kinase. It is likely he will be moved to medical floor for aggressive IV fluid resuscitation. Consent was obtained for the added Haldol. Justification for Continued Inpatient Stay: Moving this patient to a less restrictive environment would likely result in decompensation. Request Healthcare Surrogate/Guardian Advocate?: Yes
[2017-12-24 17:20] LABS: Alanine Aminotransferase 78 U/L (12-78); Albumin 3.7 g/dL (3.4-5.0); Alkaline Phosphatase 37 U/L (45-117); Anion Gap 12 meq/L (5-15); Aspartate Aminotransferase 92 U/L (15-37); Blood Urea Nitrogen 16 mg/dL (7-18); Calcium 8.9 mg/dL (8.5-10.1); Carbon Dioxide 24.5 meq/L (21.0-32.0); Chloride 103 meq/L (98-107); Glomerular Filtration Rate 81 mL/min (>89); Glucose,Random 113 mg/dL (74-106); Potassium 3.8 meq/L (3.5-5.1); Sodium 139 meq/L (136-145); Total Protein 8.1 g/dL (6.4-8.2)
--- NOTE | 2017-12-24 18:08 | P.PN ---
Subjective Interval history: Patient doing well overnight. Tolerating p.o., voiding and stooling well. No concerns per RN, however labs this a.m. need to be reviewed. Physical Exam Vital signs: Vital Signs 12/24/17 06:42 12/24/17 17:25 Temperature 97.2 F L 98.9 F Pulse Rate 91 H 89 Respiratory Rate 17 17 Blood Pressure 117/83 153/89 H Pulse Oximetry 98 97 Narrative: GENERAL: Obese AA male, in NAD HEENT: Normocephalic, atraumatic. PERRLA. Moist oral mucosa per CARDIOVASCULAR: Normal rate and regular rhythm without murmurs, gallops, or rubs. RESPIRATORY: Good respiratory efforts. Breath sounds equal and clear to auscultation bilaterally. GASTROINTESTINAL: Abdomen soft, non-tender, non-distended. Normal active bowel sounds MUSCULOSKELETAL: Extremities without cyanosis, or edema. NEURO: Alert & Oriented x4 to person, place, time, situation. Moves all ext x4 PSYCH: Calm, cooperative Results - Labs CBC & Chem 7: 12/24/17 15:20 Laboratory Results - last 24 hr 12/23/17 12/24/17 12/24/17 19:28 15:20 15:20 Sodium 139 139 Potassium 3.5 3.8 Chloride 104 103 Carbon Dioxide 25.3 24.5 Anion Gap 10 12 BUN 14 16 Creatinine 1.22 1.28 Estimated GFR 85 L 81 L Random Glucose 80 113 H Calcium 8.7 8.9 Total Bilirubin 0.8 AST 92 H ALT 78 Alkaline Phosphatase 37 L Total Creatine Kinase 1980 H 3359 H CK-MB (CK-2) 2.4 2.3 CK-MB (CK-2) % 0.1 0.1 Total Protein 8.1 D Albumin 3.7 Assessment and Plan - Assessment (1) Elevated blood pressure reading Code(s): R03.0 - Elevated blood-pressure reading, without diagnosis of hypertension Status: Acute (2) Rhabdomyolysis Code(s): M62.82 - Rhabdomyolysis Status: Acute (3) Unspecified psychosis Code(s): F29 - Unspecified psychosis not due to a substance or known physiological condition Status: Acute - Plan 27-year-old -Japanese male admitted for inpatient management of acute psychosis managed by psych team, we have been asked for medical management for rhabdomyolysis and elevated blood pressure, HD#7 1. Rhabdomyolysis CK 3359 today from 1979 yesterday Patient not on IV fluids We will transfer to medical floor and start name NS at 125ml/hr Follow-up creatinine kinase in a.m. 2. Hypertension Not well controlled Increase Norvasc to 10 mg daily We will continue to monitor 3. DVT prophylaxis: Ambulatory 4. Disco: Follow-up creatinine kinase and BP in a.m. Code Status: full Discussed Condition With: patient, RN (3) Unspecified psychosis Qualifiers: Psychosis type: unspecified psychosis type Qualified Code(s): F29 - Unspecified psychosis not due to a substance or known physiological condition
[2017-12-24] MEDS: Sod Chloride 0.9% Inj 1,000 ML IV.CONT SCH (19:22)
[2017-12-24] MEDS: Haloperidol 5 MG Tablet PO SCH (20:16)
[2017-12-24] MEDS: OLANZapine 20 MG Tab.Rapdis PO SCH (20:16)
[2017-12-25] MEDS: Haloperidol Inj 5 MG/ML Ampul IM SCH ×2 (00:53→12:52)
--- NOTE | 2017-12-25 07:21 | P.PN ---
Subjective Interval history: Patient doing well overnight. Patient is tolerating PO and voiding/stooling well. No overnight concerns per RN. Physical Exam Vital signs: Vital Signs 12/24/17 17:25 Temperature 98.9 F Pulse Rate 89 Respiratory Rate 17 Blood Pressure 153/89 H Pulse Oximetry 97 Intake & Output 12/24/17 12/25/17 12/25/17 18:59 06:59 18:59 Intake Total 900 / 900 Output Total 900 / 900 Balance 0 / 0 Intake: Oral 900 / 900 Output: Urine 900 / 900 Narrative: GENERAL: Obese AA male, in NAD HEENT: Normocephalic, atraumatic. PERRLA. Moist oral mucosa per CARDIOVASCULAR: Normal rate and regular rhythm without murmurs, gallops, or rubs. RESPIRATORY: Good respiratory efforts. Breath sounds equal and clear to auscultation bilaterally. GASTROINTESTINAL: Abdomen soft, non-tender, non-distended. Normal active bowel sounds MUSCULOSKELETAL: Extremities without cyanosis, or edema. NEURO: Alert & Oriented x4 to person, place, time, situation. Moves all ext x4 PSYCH: Calm, cooperative Results - Labs CBC & Chem 7: 12/25/17 09:15 12/25/17 09:15 Laboratory Results - last 24 hr 12/24/17 12/24/17 15:20 15:20 Sodium 139 Potassium 3.8 Chloride 103 Carbon Dioxide 24.5 Anion Gap 12 BUN 16 Creatinine 1.28 Estimated GFR 81 L Random Glucose 113 H Calcium 8.9 Total Bilirubin 0.8 AST 92 H ALT 78 Alkaline Phosphatase 37 L Total Creatine Kinase 3359 H CK-MB (CK-2) 2.3 CK-MB (CK-2) % 0.1 Total Protein 8.1 D Albumin 3.7 Assessment and Plan - Assessment (1) Elevated blood pressure reading Code(s): R03.0 - Elevated blood-pressure reading, without diagnosis of hypertension Status: Acute (2) Rhabdomyolysis Code(s): M62.82 - Rhabdomyolysis Status: Acute (3) Unspecified psychosis Code(s): F29 - Unspecified psychosis not due to a substance or known physiological condition Status: Acute - Plan 27-year-old -Sammarinese male admitted for inpatient management of acute psychosis managed by psych team, we have been asked for medical management for rhabdomyolysis and elevated blood pressure, HD#8 1. Rhabdomyolysis CK 3341 from 3359 yesterday On NS 150ml/hr, given 1L bolus and inc. to 175ml/hr Follow-up creatinine kinase in a.m. 2. Hypertension, improved Cont. Norvasc 10 mg daily We will continue to monitor 3. DVT prophylaxis: Ambulatory 4. Disco: Follow-up creatinine kinase this a.m. Code Status: full Discussed Condition With: patient, RN (3) Unspecified psychosis Qualifiers: Psychosis type: unspecified psychosis type Qualified Code(s): F29 - Unspecified psychosis not due to a substance or known physiological condition
[2017-12-25] MEDS: Sod Chloride 0.9% Inj 1,000 ML IV.CONT SCH ×4 (08:31→21:12)
[2017-12-25 09:45] LABS: Eos # (Auto) 0.2 th/mm3 (0.0-0.4); Eos % (Auto) 4.4 % (0.0-4.0); Hemoglobin 14.1 gm/dL (13.0-17.0); Lymph # (Auto) 2.1 th/mm3 (1.0-4.8); Lymph % (Auto) 47.2 % (9.0-44.0); Mean Corpuscular HGB Conc 33.5 % (32.0-36.0); Mean Corpuscular Volume 92.5 fL (80.0-100.0); Mean Platelet Volume 8.5 fL (7.0-11.0); Mono # (Auto) 0.3 th/mm3 (0.0-0.9); Mono % (Auto) 6.6 % (0.0-8.0); Neut # (Auto) 1.8 th/mm3 (1.8-7.7); Neut % (Auto) 40.8 % (16.0-70.0); Platelet Count 227 th/mm3 (150-450); Red Blood Count 4.54 mil/mm3 (4.50-5.90); Red Cell Distribution Width 13.2 % (11.6-17.2); White Blood Count 4.5 th/mm3 (4.0-11.0)
[2017-12-25] MEDS ORDERED: Haloperidol Inj 5 MG/ML Ampul IV.PUSH ONE (09:51)
--- NOTE | 2017-12-25 10:02 | ECG ---
Date Performed: 12/24/2017 Time Performed: 14:46:34 PTAGE: 27 years EKG: Sinus rhythm NONSPECIFIC T-WAVE ABNORMALITY BORDERLINE ECG NO PREVIOUS TRACING DOCTOR: Leidy Reed Interpretating Date/Time 12/25/2017 10:00:56
[2017-12-25 10:07] LABS: Albumin 3.7 g/dL (3.4-5.0); Anion Gap 7 meq/L (5-15); Aspartate Aminotransferase 92 U/L (15-37); Blood Urea Nitrogen 11 mg/dL (7-18); Calcium 8.6 mg/dL (8.5-10.1); Carbon Dioxide 28.4 meq/L (21.0-32.0); Chloride 105 meq/L (98-107); Glomerular Filtration Rate Greater Than 89 mL/min (>89); Glucose,Random 76 mg/dL (74-106); Sodium 140 meq/L (136-145)
[2017-12-25 10:08] LABS: Alanine Aminotransferase 84 U/L (12-78)
[2017-12-25] MEDS ORDERED: Haloperidol Inj 5 MG/ML Ampul IM PRN ×3 (10:18→19:00)
[2017-12-25 10:21] LABS: Alkaline Phosphatase 39 U/L (45-117); Creatine Kinase 3341 U/L (39-308)
[2017-12-25] MEDS ORDERED: Haloperidol Inj 5 MG/ML Ampul IM ONE (10:30)
[2017-12-25 10:44] LABS: CKMB Percent 0.1 % (0.0-4.0); Creatine Kinase MB 1.9 ng/mL (0.5-3.6)
[2017-12-25] MEDS: Senna/Docusate Sodium 8.6/50 MG Tablet PO SCH ×2 (12:48→20:41)
[2017-12-25] MEDS: amLODIPine 5 MG Tablet PO SCH (12:48)
[2017-12-25] MEDS: Haloperidol 5 MG Tablet PO SCH ×2 (12:51→18:45)
[2017-12-25] MEDS ORDERED: Sod Chloride 0.9% Inj 1,000 ML IV.SIG SCH (13:45)
[2017-12-25] MEDS ORDERED: Benztropine Inj 2 MG/2 ML Ampul IM PRN (17:58)
--- NOTE | 2017-12-25 18:01 | P.PNPSY ---
Subjective Chief Complaint: Psychosis Remarks: Reviewed electronic medical records and discussed case with staff. Follow-up was conducted in the patient's room and hallway at various times throughout the day. I was contacted by staff on another unit that the patient was refusing to take his oral medications this morning. Numerous attempts were made to convince the patient to take the medications but ultimately he ended up receiving them IM. Additionally, he required an ETO after he became agitated and began kicking the exit door stating "I have to go". Throughout the day at various times he is attempted to grab keys from staff, refused his medications, and I attempted to kick the door down in order to exit the unit. Towards the end of the day, he once again seemed to have some insight and lucidity. At that time he informed staff that brought who has been representing herself as his , is in fact not his . He states she is just a friend and he would like to have his uncle Phuong, act as his surrogate. I spoke with Dr. Alexander via phone to discuss the patient's current medication regimen. He seems to be responding better to the Haldol and Ativan. To that end, it was decided to switch him to Haldol 3 times a day with an IM backup if he refuses the oral dose. We are also adding parenteral Ativan to target his catatonic symptoms at 2 mg twice a day. I have added Cogentin 1 mg twice a day as needed for any EPS symptoms that should arise. I contacted the patient's uncle who gave verbal consent over the phone for this treatment change. The patient continues to receive IV saline to address his elevated CPK levels. He is requested a blanket so that he could lie on his bed while he receives the fluid. Seeing as he has a one-to-one observer at this time I will put in order to allow him to have the blanket while this precaution is in place. Mental Status Examination Appearance: Other (Naked) Consciousness: Alert Orientation: Person (at least) Motor Activity: Normal gait, Other (No hand tremor, no dystonia, no dyskinesia noted. No other motor abnormalities noted.) Speech: Unremarkable Language: Other (Rambling) Fund of Knowledge: Adequate Attention and Concentration: Adequate Memory: Unremarkable Mood: Oppositional, Irritable Affect: Irritable Thought Process & Associations: Tangential Thought Content: Bizarre thinking, Hallucinations, Thought blocking, Delusional Hallucination Type: Other (Frankly internally stimulated) Delusion Type: Paranoid, Other (Religiously preoccupied) Suicidal Ideation: No Suicidal Plan: No Suicidal Intention: No Homicidal Ideation: No Homicidal Plan: No Homicidal Intention: No Insight: Poor Judgment: Poor Assessment and Plan - Assessment (1) Brief psychotic disorder Code(s): F23 - Brief psychotic disorder Status: Acute - Plan Plan: Patient will be reevaluated tomorrow by the attending psychiatrist. Continue with current treatment plan. Justification for Continued Inpatient Stay: Moving this patient to a less restrictive environment would likely result in decompensation. Request Healthcare Surrogate/Guardian Advocate?: Yes
[2017-12-25] MEDS ORDERED: Haloperidol 5 MG Tablet PO SCH (19:00)
[2017-12-25] MEDS: LORazepam 1 MG Tablet PO SCH (20:42)
[2017-12-26] MEDS: Sod Chloride 0.9% Inj 1,000 ML IV.CONT SCH ×4 (02:40→19:02)
[2017-12-26] MEDS: Senna/Docusate Sodium 8.6/50 MG Tablet PO SCH ×2 (08:39→20:26)
[2017-12-26] MEDS: LORazepam 1 MG Tablet PO SCH ×2 (08:40→20:25)
[2017-12-26] MEDS: amLODIPine 5 MG Tablet PO SCH (08:40)
[2017-12-26] MEDS: Haloperidol 5 MG Tablet PO SCH ×3 (08:40→20:25)
[2017-12-26 09:10] LABS: Albumin 3.5 g/dL (3.4-5.0); Anion Gap 10 meq/L (5-15); Aspartate Aminotransferase 83 U/L (15-37); Blood Urea Nitrogen 7 mg/dL (7-18); Calcium 8.6 mg/dL (8.5-10.1); Carbon Dioxide 26.4 meq/L (21.0-32.0); Chloride 104 meq/L (98-107); Glomerular Filtration Rate Greater Than 89 mL/min (>89); Glucose,Random 108 mg/dL (74-106); Potassium 3.8 meq/L (3.5-5.1); Sodium 140 meq/L (136-145)
[2017-12-26 09:12] LABS: Alanine Aminotransferase 78 U/L (12-78)
[2017-12-26 09:25] LABS: Alkaline Phosphatase 38 U/L (45-117); Creatine Kinase 3338 U/L (39-308); Total Protein 7.7 g/dL (6.4-8.2)
[2017-12-26 09:43] LABS: Creatine Kinase MB 1.5 ng/mL (0.5-3.6)
--- NOTE | 2017-12-26 10:19 | P.PNPSY ---
Subjective Chief Complaint: Psychosis Remarks: Patient seen and examined with nurse. Chart reviewed. Case discussed with nursing staff. Patient is with 1:1 for behavioral redirection. I discussed case with STEREOPTIC PROJECTION TOPOGRAPHER on Tuesday. She advised me of change in HCS to . We also discussed patient's positive response to benzodiazepine ETO, and I posited that there might be a component of agitated catatonia that improved with this medication and recommended initiation of parenteral Ativan, although I do note this has been added p.o.. We also discussed adjustments to patient's antipsychotic medications in light of elevated CK. Case discussed with counselor. On my exam today 12/26, patient is calm and cooperative. He reports feeling "weird" over the weekend and specifically cites seeing the kinsey move but otherwise denies any hallucinatory material. I can elicit no paranoia. He does exhibit possible ideas of reference and I do suspect ongoing confucianist preoccupation. He has no side effects from medications, nor does he have any physical complaints. We discuss his elevated CK, and I emphasize the importance of hydration. I confirm with patient that he wishes us to use uncle Phuong as HCS going forward. I have called Phuong today at number listed in STEREOPTIC PROJECTION TOPOGRAPHER's note. I confirm that Phuong is willing to act as HCS going forward. We review patient's current psychotropic medications and Phuong provides consent for these. We discuss patient's progress on the unit. We discuss [address] . I spent ~11minutes in telephone consultation with Phuong. Vital Signs Temp Pulse Resp BP Pulse Ox 12/26/17 14:14 98.3 F 109 H 17 142/91 H 12/26/17 06:00 98.1 F 94 H 17 118/74 98 Intake and Output 12/26/17 12/26/17 12/26/17 06:59 14:59 22:59 Intake Total 850 / 850 1882.4 / 1882.4 Balance 850 / 850 1882.4 / 1882.4 Intake: IV 850 / 850 1882.4 / 1882.4 NS Inj 1,000 ML @ 175 mls/hr IV 850 / 850 1882.4 / 1882.4 .CONT .Q5H43M [facility] Rx#:[id number] Laboratory Results - last 24 hr 12/26/17 08:17 Sodium 140 Potassium 3.8 Chloride 104 Carbon Dioxide 26.4 Anion Gap 10 BUN 7 Creatinine 1.06 Estimated GFR Greater than 89 Random Glucose 108 H Calcium 8.6 Total Bilirubin 0.6 AST 83 H ALT 78 Alkaline Phosphatase 38 L Total Creatine Kinase 3338 H CK-MB (CK-2) 1.5 CK-MB (CK-2) % 0.0 Total Protein 7.7 Albumin 3.5 Labs reviewed. CK more or less constant x 3 days. No evidence of renal compromise. Review of Systems All other systems reviewed negative except as stated in HPI (Limitation: psychosis) Mental Status Examination Appearance: Other (Clothed in paper scrubs) Consciousness: Alert Orientation: Person, Place Motor Activity: Other (No hand tremor, no cogwheeling, no hypomimia, no dystonia , no dyskinesia, no other motor abnormalities noted. No signs of NMS.) Speech: Unremarkable Language: Adequate Fund of Knowledge: Adequate Attention and Concentration: Adequate Memory: Unremarkable Mood: Appropriate Affect: Blunt Thought Process & Associations: Circumstantial Thought Content: Hallucinations, Thought blocking, Delusional Hallucination Type: Other (Remains somewhat internally preoccupied) Delusion Type: Other (Possible ideas of reference and confucianist preoccupation) Suicidal Ideation: No Homicidal Ideation: No Insight: Poor Judgment: Poor Assessment and Plan - Assessment (1) Brief psychotic disorder Code(s): F23 - Brief psychotic disorder Status: Acute (2) Cannabis abuse Code(s): F12.10 - Cannabis abuse, uncomplicated Status: Acute - Plan Plan: Patient seems to be improving with current regimen. I will continue with Haldol as ordered for now. Titration of Haldol to target residual symptoms of psychosis might be helpful, but this medication was just titrated yesterday and elevated CK is a risk factor for development of NMS and I do not wish to provoke this condition by overly rapid titration of the Haldol, especially while CK remains steady and elevated. I will also continue the Ativan p.o. as ordered as this seems to be having the desired effect even though it is not parenteral. We might consider temporarily titrating this to TID if needed. Continue one-to-one for now although we might consider decreasing this later in the week. Continue to trend CK and BMP. Continue to monitor on the inpatient unit. Continue other medications and care as ordered. Hospitalist input appreciated. I did notify the patient of my absence on Tuesday and Tuesday of this week with planned return . Justification for Continued Inpatient Stay: Impairment in reality construction. High risk for decompensation in less restrictive environment. Complicating conditions. Discharge Planning: Pending psychiatric stabilization. Request Healthcare Surrogate/Guardian Advocate?: Yes
[2017-12-26] MEDS ORDERED: Haloperidol Inj 5 MG/ML Ampul IM PRN (15:00)
--- NOTE | 2017-12-26 16:37 | P.PN ---
Subjective Interval history: Follow-up for rhabdomyolysis, elevated blood pressure. Patient seen and examined in the presence of RN and child psychology teacher. Patient cooperative. Continues on IV fluids. Took Norvasc today. Blood pressure 142/91. Has no complaints. Asking when he is going to be discharged. Physical Exam Vital signs: Vital Signs 12/26/17 06:00 12/26/17 14:14 Temperature 98.1 F 98.3 F Pulse Rate 94 H 109 H Respiratory Rate 17 17 Blood Pressure 118/74 142/91 H Pulse Oximetry 98 Intake & Output 12/25/17 12/26/17 12/26/17 18:59 06:59 18:59 Intake Total 975 / 975 850 / 850 1882.4 / 1882.4 Balance 975 / 975 850 / 850 1882.4 / 1882.4 Intake: IV 975 / 975 850 / 850 1882.4 / 1882.4 NS Inj 1,000 ML @ 175 mls/hr IV 975 / 975 850 / 850 1882.4 / 1882.4 .CONT .Q5H43M [facility] Rx#:[id number] Narrative: GENERAL: Obese AA male, in NAD HEENT: Normocephalic, atraumatic. PERRLA. Moist oral mucosa per CARDIOVASCULAR: Normal rate and regular rhythm without murmurs, gallops, or rubs. RESPIRATORY: Good respiratory efforts. Breath sounds equal and clear to auscultation bilaterally. GASTROINTESTINAL: Abdomen soft, non-tender, non-distended. Normal active bowel sounds MUSCULOSKELETAL: Extremities without cyanosis, or edema. NEURO: Alert & Oriented x4 to person, place, time, situation. Moves all ext x4 PSYCH: Calm, cooperative Results - Labs CBC & Chem 7: 12/25/17 09:15 12/26/17 08:17 Laboratory Results - last 24 hr 12/26/17 08:17 Sodium 140 Potassium 3.8 Chloride 104 Carbon Dioxide 26.4 Anion Gap 10 BUN 7 Creatinine 1.06 Estimated GFR Greater than 89 Random Glucose 108 H Calcium 8.6 Total Bilirubin 0.6 AST 83 H ALT 78 Alkaline Phosphatase 38 L Total Creatine Kinase 3338 H CK-MB (CK-2) 1.5 CK-MB (CK-2) % 0.0 Total Protein 7.7 Albumin 3.5 Assessment and Plan - Assessment (1) Elevated blood pressure reading Code(s): R03.0 - Elevated blood-pressure reading, without diagnosis of hypertension Status: Acute (2) Rhabdomyolysis Code(s): M62.82 - Rhabdomyolysis Status: Acute (3) Unspecified psychosis Code(s): F29 - Unspecified psychosis not due to a substance or known physiological condition Status: Acute - Plan 27-year-old male admitted to the psychiatric unit for psychosis. Found to have elevated blood pressure. Patient reports he was told he had borderline hypertension in the past but he never took any medications. Psychosis, improving. - Management per psychiatry, On Zyprexa Possible untreated hypertension, initially 180s -Blood pressure improved, continue with Norvasc 10 mg p.o. daily -Continue Clonidine as needed for blood pressure greater than 180/100. Rhabdomyolysis poss secondary to psychosis and agitation, illegal drug use ( UDT + cannabis) CPK trending up, today 3338 Renal function stable -Continue with normal saline at 175 an hour CMP in the morning Monitor renal function Encourage p.o. fluids No DVT prophylaxis needed, pt. ambulatory Follow CMP Code Status: Full code Discussed Condition With: RN, pt Discharge Planning: Per psych team (3) Unspecified psychosis Qualifiers: Psychosis type: unspecified psychosis type Qualified Code(s): F29 - Unspecified psychosis not due to a substance or known physiological condition
[2017-12-26] MEDS: Melatonin 5 MG Tablet PO PRN (20:25)
[2017-12-27] MEDS: Sod Chloride 0.9% Inj 1,000 ML IV.CONT SCH ×5 (01:25→18:10)
[2017-12-27 07:13] LABS: Alanine Aminotransferase 74 U/L (12-78); Albumin 3.2 g/dL (3.4-5.0); Anion Gap 9 meq/L (5-15); Aspartate Aminotransferase 60 U/L (15-37); Blood Urea Nitrogen 7 mg/dL (7-18); Calcium 8.1 mg/dL (8.5-10.1); Carbon Dioxide 26.8 meq/L (21.0-32.0); Chloride 107 meq/L (98-107); Glomerular Filtration Rate Greater Than 89 mL/min (>89); Glucose,Random 81 mg/dL (74-106); Potassium 3.8 meq/L (3.5-5.1); Sodium 143 meq/L (136-145)
[2017-12-27 07:27] LABS: Alkaline Phosphatase 40 U/L (45-117); Creatine Kinase 2174 U/L (39-308); Total Protein 7.2 g/dL (6.4-8.2)
[2017-12-27] MEDS ORDERED: Haloperidol Inj 5 MG/ML Ampul IM ONE (09:17)
[2017-12-27] MEDS: Haloperidol 5 MG Tablet PO SCH ×3 (09:54→20:21)
[2017-12-27] MEDS: LORazepam 1 MG Tablet PO SCH ×2 (09:54→20:20)
[2017-12-27] MEDS: amLODIPine 5 MG Tablet PO SCH (09:55)
[2017-12-27] MEDS: Senna/Docusate Sodium 8.6/50 MG Tablet PO SCH ×2 (09:55→20:22)
--- NOTE | 2017-12-27 12:03 | P.PNPSY ---
Subjective Chief Complaint: Psychosis Remarks: Reviewed electronic medical records and discussed case with staff. Follow-up was conducted in patient's room. Patient had to be ETO once again this morning due to 2 behavioral issues. He ripped his IV out of his arm and attempted to abscond from the unit once again. When asked why he did that he states, "I just had to go". Patient much calmer at the time of the follow-up. Mental Status Examination Appearance: Other (Clothed in paper scrubs) Consciousness: Alert Orientation: Person, Place Motor Activity: Other (No hand tremor, no cogwheeling, no hypomimia, no dystonia , no dyskinesia, no other motor abnormalities noted. No signs of NMS.) Speech: Unremarkable Language: Adequate Fund of Knowledge: Adequate Attention and Concentration: Adequate Memory: Unremarkable Mood: Appropriate Affect: Blunt Thought Process & Associations: Circumstantial Thought Content: Hallucinations, Thought blocking, Delusional Hallucination Type: Other (Remains somewhat internally preoccupied) Delusion Type: Other (Possible ideas of reference and gnosticist preoccupation) Suicidal Ideation: No Suicidal Plan: No Suicidal Intention: No Homicidal Ideation: No Homicidal Plan: No Homicidal Intention: No Insight: Poor Judgment: Poor Assessment and Plan - Assessment (1) Brief psychotic disorder Code(s): F23 - Brief psychotic disorder Status: Acute - Plan Plan: Patient will be reevaluated Tuesday by the attending psychiatrist. Continue with current treatment plan. Justification for Continued Inpatient Stay: Moving this patient to a less restrictive environment would likely result in decompensation. Request Healthcare Surrogate/Guardian Advocate?: Yes
[2017-12-27 13:38] LABS: Hepatitits B Surface Antigen Nonreactive (Nonreactive)
[2017-12-27 13:58] LABS: Hepatitis A IgM Antibody Nonreactive (Nonreactive)
--- NOTE | 2017-12-27 17:02 | P.PN ---
Subjective Interval history: Patient with rhabdomyolysis, elevated blood pressure. Patient seen and examined. Patient pulled out his IV earlier today but is since been reinserted. He refuses medications today. Patient denies any complaints. Denies any fever chills. Denies any chest pain or shortness of breath. Denies any nausea, vomiting or abdominal pain. Discussed with nursing staff reports good urinary output. Physical Exam Vital signs: Vital Signs 12/27/17 05:56 Pulse Rate 88 Respiratory Rate 17 Blood Pressure 144/84 H Pulse Oximetry 100 Intake & Output 12/26/17 12/27/17 12/27/17 18:59 06:59 18:59 Intake Total 1882.4 / 1882.4 2875 / 2875 383 / 383 Balance 1882.4 / 1882.4 2875 / 2875 383 / 383 Intake: IV 1882.4 / 1882.4 2875 / 2875 383 / 383 NS Inj 1,000 ML @ 175 mls/hr IV 1882.4 / 1882.4 2875 / 2875 383 / 383 .CONT .Q5H43M [facility] Rx#:[id number] Narrative: GENERAL: Well-developed well-nourished -Iranian male patient, no acute distress. HEENT: Normocephalic, atraumatic. PERRLA. No nasal drainage. Airway patent. Moist mucous member. CARDIOVASCULAR: Normal rate and regular rhythm without murmurs, gallops, or rubs. RESPIRATORY: Clear to auscultation bilaterally per GASTROINTESTINAL: Abdomen soft, non-tender, non-distended. Normal active bowel sounds. MUSCULOSKELETAL: Extremities without cyanosis or edema. NEURO: Alert and oriented. Cranial II-XII grossly intact. Moves all extremities spontaneously. Nonfocal. Normal speech. PSYCH: Calm, cooperative Results - Labs CBC & Chem 7: 12/25/17 09:15 12/27/17 05:49 Laboratory Results - last 24 hr 12/27/17 12/27/17 05:49 12:38 Sodium 143 Potassium 3.8 Chloride 107 Carbon Dioxide 26.8 Anion Gap 9 BUN 7 Creatinine 0.99 Estimated GFR Greater than 89 Random Glucose 81 Calcium 8.1 L Total Bilirubin 0.3 AST 60 H ALT 74 Alkaline Phosphatase 40 L Total Creatine Kinase 2174 H CK-MB (CK-2) Less than 1.0 CK-MB (CK-2) % 0.0 Total Protein 7.2 Albumin 3.2 L Hepatitis A IgM Ab Nonreactive Hep Bs Antigen Nonreactive Hep B Core IgM Ab Nonreactive Hep C IgG Ab Nonreactive Assessment and Plan - Assessment (1) Elevated blood pressure reading Code(s): R03.0 - Elevated blood-pressure reading, without diagnosis of hypertension Status: Acute (2) Rhabdomyolysis Code(s): M62.82 - Rhabdomyolysis Status: Acute (3) Unspecified psychosis Code(s): F29 - Unspecified psychosis not due to a substance or known physiological condition Status: Acute - Plan 27-year-old male admitted to the psychiatric unit for psychosis. Found to have elevated blood pressure. Patient reports he was told he had borderline hypertension in the past but he never took any medications. Psychosis - Management per psychiatry, On Zyprexa Possible untreated hypertension, initially 180s -Blood pressure improved, continue with Norvasc 10 mg p.o. daily. Patient refuses medication adamantly. -Continue Clonidine as needed for blood pressure greater than 180/100. Rhabdomyolysis poss secondary to psychosis and agitation, illegal drug use ( UDT + cannabis) CPK trending up, 3338 Renal function stable, good UOP -CPK improved, 2174. Continue with normal saline at 175 an hour. If CPK tomorrow continues to decline, will DC IV fluids. Discussed with patient who states he is agreeable to continuing IV fluids per night. Monitor renal function Encourage p.o. fluids -repeat labs in am DVT prophylaxis -Patient is ambulatory Code Status: Full Discussed Condition With: Nursing staff, patient (3) Unspecified psychosis Qualifiers: Psychosis type: unspecified psychosis type Qualified Code(s): F29 - Unspecified psychosis not due to a substance or known physiological condition
[2017-12-27] MEDS: Melatonin 5 MG Tablet PO PRN (20:21)
[2017-12-28] MEDS: Sod Chloride 0.9% Inj 1,000 ML IV.CONT SCH ×5 (01:13→22:32)
[2017-12-28] MEDS: LORazepam 1 MG Tablet PO SCH ×3 (07:10→20:23)
[2017-12-28] MEDS: Haloperidol 5 MG Tablet PO SCH ×3 (07:11→20:23)
[2017-12-28] MEDS: amLODIPine 5 MG Tablet PO SCH (08:10)
[2017-12-28] MEDS: Senna/Docusate Sodium 8.6/50 MG Tablet PO SCH ×2 (08:10→20:31)
--- NOTE | 2017-12-28 08:50 | P.PN ---
Subjective Interval history: Patient with rhabdomyolysis, elevated blood pressure. Patient seen and examined. Patient denies any complaints. He denies any chest pain or shortness of breath. He denies any N/V or abdominal pain. He denies any dark or bloody urine. He is asking if he can sleep while his IVF are running. DW nursing staff, patient went without IVF for about 4hrs yesterday and he turned the rate of the fluids down to 150cc/hr himself last night. She reports good UOP. Physical Exam Vital signs: Vital Signs 12/27/17 19:16 12/28/17 06:19 Temperature 97.3 F L Pulse Rate 88 Respiratory Rate 17 Blood Pressure 159/85 H Pulse Oximetry 97 99 Intake & Output 12/27/17 12/28/17 12/28/17 18:59 06:59 18:59 Intake Total 1383 / 1383 1860 / 1860 Balance 1383 / 1383 1860 / 1860 Intake: IV 1383 / 1383 1860 / 1860 NS Inj 1,000 ML @ 175 mls/hr IV 1383 / 1383 1860 / 1860 .CONT .Q5H43M [facility] Rx#:[id number] Narrative: GENERAL: Well-developed well-nourished -Namibian male patient, no acute distress. Awake and alert. Appears comfortable. HEENT: Normocephalic, atraumatic. PERRLA. No nasal drainage. Airway patent. Moist mucous membranes CARDIOVASCULAR: Normal rate and regular rhythm without murmurs, gallops, or rubs. RESPIRATORY: Clear to auscultation bilaterally. Good air entry. GASTROINTESTINAL: Abdomen soft, non-tender, non-distended. Normal active bowel sounds. MUSCULOSKELETAL: Extremities without cyanosis or edema. NEURO: Alert and oriented. Cranial II-XII grossly intact. Moves all extremities spontaneously. Nonfocal. Normal speech. PSYCH: Calm and cooperative. Results - Labs CBC & Chem 7: 12/25/17 09:15 12/28/17 07:29 Laboratory Results - last 24 hr 12/27/17 12:38 Hepatitis A IgM Ab Nonreactive Hep Bs Antigen Nonreactive Hep B Core IgM Ab Nonreactive Hep C IgG Ab Nonreactive Assessment and Plan - Assessment (1) Elevated blood pressure reading Code(s): R03.0 - Elevated blood-pressure reading, without diagnosis of hypertension Status: Acute (2) Rhabdomyolysis Code(s): M62.82 - Rhabdomyolysis Status: Acute (3) Unspecified psychosis Code(s): F29 - Unspecified psychosis not due to a substance or known physiological condition Status: Acute - Plan 27-year-old male admitted to the psychiatric unit for psychosis. Found to have elevated blood pressure. Patient reports he was told he had borderline hypertension in the past but he never took any medications. Psychosis - Management per psychiatry, On Zyprexa Possible untreated hypertension, initially 180s -Blood pressure improved, continue with Norvasc 10 mg p.o. daily. Patient refuses medication intermittently. He was agreeable to taking Norvasc today. BP likely elevated at least in part by IVF. -Continue Clonidine as needed for blood pressure greater than 180/100. -Continue to monitor BP and adjust treatment accordingly Rhabdomyolysis poss secondary to psychosis and agitation, illegal drug use ( UDT + cannabis) CPK trending up, 3338 Renal function stable, good UOP -CPK improved, 2174. Patient went without IVF yesterday for about 4hrs after pulling out IV and then turned the rate down to 150ml/hr himself sometime last night. He is agreeable to continuing IVF for now. Will increase rate and recheck CK in am. Cr remains stable. Monitor renal function Encourage p.o. fluids -repeat labs in am DVT prophylaxis -Patient is ambulatory Code Status: Full Discussed Condition With: patient, nursing staff (3) Unspecified psychosis Qualifiers: Psychosis type: unspecified psychosis type Qualified Code(s): F29 - Unspecified psychosis not due to a substance or known physiological condition
[2017-12-28 08:57] LABS: Anion Gap 6 meq/L (5-15); Blood Urea Nitrogen 6 mg/dL (7-18); Calcium 8.7 mg/dL (8.5-10.1); Carbon Dioxide 28.8 meq/L (21.0-32.0); Chloride 104 meq/L (98-107); Glomerular Filtration Rate Greater Than 89 mL/min (>89); Glucose,Random 85 mg/dL (74-106); Potassium 3.7 meq/L (3.5-5.1); Sodium 139 meq/L (136-145)
[2017-12-28 09:12] LABS: Creatine Kinase 2382 U/L (39-308)
[2017-12-28 09:28] LABS: CKMB Percent 0.1 % (0.0-4.0)
--- NOTE | 2017-12-28 14:39 | P.PNPSY ---
Subjective Chief Complaint: Psychosis Remarks: Patient is seen in his room one-to-one sitter, chart reviewed, patient discussed with nurse. Patient tolerating IV without difficulty at this time he is alert calm cooperative mild denies suicidality is vague about auditory hallucinations. Discussing with nurse she states that staff notices patient's behavior seemed to present themselves early in the day from 8:00 in about noon. We will increase a.m. dose of Haldol to 10 mg continue 2 PM and 8 PM p.m. doses no change. Patient is showing good behavior we will allow patient to disclose back today also patient is scheduled for [employer] court tomorrow Review of Systems All other systems reviewed negative except as stated in HPI Mental Status Examination Appearance: Other (Clothed in paper scrubs) Consciousness: Alert Orientation: Person, Place Motor Activity: Other (No hand tremor, no cogwheeling, no hypomimia, no dystonia , no dyskinesia, no other motor abnormalities noted. No signs of NMS.) Speech: Unremarkable Language: Adequate Fund of Knowledge: Adequate Attention and Concentration: Adequate Memory: Unremarkable Mood: Appropriate Affect: Blunt Thought Process & Associations: Circumstantial Thought Content: Hallucinations, Thought blocking, Delusional Hallucination Type: Other (Remains somewhat internally preoccupied) Delusion Type: Other (Possible ideas of reference and anglican preoccupation) Suicidal Ideation: No Suicidal Plan: No Suicidal Intention: No Homicidal Ideation: No Homicidal Plan: No Homicidal Intention: No Insight: Poor Judgment: Poor Assessment and Plan - Assessment (1) Brief psychotic disorder Code(s): F23 - Brief psychotic disorder Status: Acute (2) Cannabis abuse Code(s): F12.10 - Cannabis abuse, uncomplicated Status: Acute - Plan Plan: Patient somewhat calmer today focused though there is some anxiety related to [employer] court tomorrow please see medication adjustments above Justification for Continued Inpatient Stay: At this time patient would decompensate a place to a lower level of care Discharge Planning: To be determined Request Healthcare Surrogate/Guardian Advocate?: Yes
[2017-12-28 16:37] VITALS: O2SAT 98
[2017-12-28] MEDS: Melatonin 5 MG Tablet PO PRN (20:27)
[2017-12-28] MEDS ORDERED: Heparin - SQ 10,000 UNITS/ML Vial SQ SCH (21:00)
[2017-12-29] MEDS: Sod Chloride 0.9% Inj 1,000 ML IV.CONT SCH ×3 (00:23→08:04)
[2017-12-29 06:19] VITALS: BP 132/96; PULSE 80; RESP 17; TEMP 98.2
[2017-12-29] MEDS: amLODIPine 5 MG Tablet PO SCH (08:03)
[2017-12-29] MEDS: Senna/Docusate Sodium 8.6/50 MG Tablet PO SCH (08:03)
[2017-12-29 09:25] LABS: Anion Gap 9 meq/L (5-15); Blood Urea Nitrogen 7 mg/dL (7-18); Calcium 8.9 mg/dL (8.5-10.1); Carbon Dioxide 24.6 meq/L (21.0-32.0); Chloride 103 meq/L (98-107); Glomerular Filtration Rate Greater Than 89 mL/min (>89); Glucose,Random 122 mg/dL (74-106); Potassium 3.4 meq/L (3.5-5.1); Sodium 137 meq/L (136-145)
--- NOTE | 2017-12-29 09:29 | P.PNPSY ---
Subjective Chief Complaint: Psychosis Mental Status Examination Appearance: Other (Clothed in paper scrubs) Consciousness: Alert Orientation: Person, Place Motor Activity: Other (No hand tremor, no cogwheeling, no hypomimia, no dystonia , no dyskinesia, no other motor abnormalities noted. No signs of NMS.) Speech: Unremarkable Language: Adequate Fund of Knowledge: Adequate Attention and Concentration: Adequate Memory: Unremarkable Mood: Appropriate Affect: Blunt Thought Process & Associations: Circumstantial Thought Content: Hallucinations, Thought blocking, Delusional Hallucination Type: Other (Remains somewhat internally preoccupied) Delusion Type: Other (Possible ideas of reference and druze preoccupation) Suicidal Ideation: No Suicidal Plan: No Suicidal Intention: No Homicidal Ideation: No Homicidal Plan: No Homicidal Intention: No Insight: Poor Judgment: Poor Assessment and Plan - Assessment (1) Brief psychotic disorder Code(s): F23 - Brief psychotic disorder Status: Acute (2) Cannabis abuse Code(s): F12.10 - Cannabis abuse, uncomplicated Status: Acute - Plan Request Healthcare Surrogate/Guardian Advocate?: Yes
[2017-12-29 09:39] LABS: Creatine Kinase 1632 U/L (39-308)
[2017-12-29 09:57] LABS: CKMB Percent 0.1 % (0.0-4.0); Creatine Kinase MB 1.2 ng/mL (0.5-3.6)
[2017-12-29] MEDS: LORazepam 1 MG Tablet PO SCH ×2 (10:06→14:21)
--- NOTE | 2017-12-29 10:43 | P.DSPSY ---
Psychiatry Discharge Summary Inpatient Psychiatric care?: Yes Advance Directives: Unknown Reason for Unknown:: Other Mental Health Advance Directive: No Health Care Proxy: No - Admission Admission Date: December 18, 2017 13:58 - Admission Diagnosis (1) Brief psychotic disorder Code(s): F23 - Brief psychotic disorder (2) Cannabis abuse Code(s): F12.10 - Cannabis abuse, uncomplicated Brief History: Mr. Mac is a 27 year-old male of uncertain past psychiatric history transferred from [facility] under a [place] act. Documentation from outside hospital reviewed. Patient presented there with reports of no sleep times 3 days. Stressor was apparently recent passing of mother and aunt. Reviewing our electronic medical record, I see no previous psychiatric visits within our system. Patient seen and examined with nurse and therapist. Chart reviewed. Case discussed with nursing staff. On my examination today, the patient presents as irritable and paranoid. He is fairly disheveled. He rambles on anabaptist themes. At one point he yells at unseen demons, saying "shut up demons! Satan! " He tells me "in a free world this stuff is about choice. I'm being tested." He denies suicidal ideation but says "if I had a gun right now, I'd kill y' all right now." He endorses hallucinations "for a while" but cannot describe the content of these hallucinations. He does appear internally stimulated. Affect is irritable and dysphoric. Psychiatric interview is limited because of the patient's degree of psychiatric symptomatology. No acute physical complaints. I returned to the unit in response to a CODE AYDE called on this patient and found him agitated and psychotic, pacing in the hallway. He appears to try to swat at nurse when she endeavors to medicate him with Ativan for CIWA. I ordered patient medicated with Haldol, Ativan and Benadryl IM ETO to good effect. Tobacco Use In Past 30 Days: No How Often Do You Have a Drink Containing Alcohol: Unable to Obtain Hospital Course: Patient was admitted to a locked, inpatient psychiatric unit. A general medical consultation was obtained. Patient was seen and examined on the unit by psychiatry and also visited by counselor. Psychotropic medications were adjusted. Collateral information was obtained. Patient experienced elevated CK and required IV fluids for management of this issue. Patient exhibited ongoing, intermittent behavioral disturbance in the setting of his psychosis and required several ETO's during his hospital stay. Patient's case was presented to the [place] act court today and the perfume compounder has ordered the patient's discharge as per the patient's request. On my examination on the day of discharge: Patient seen and examined. Chart reviewed. Case discussed with nursing staff. Patient denies suicidal or homicidal ideation, intent or plan. He denies audiovisual hallucinations. He does remain somewhat internally preoccupied. He does not articulate any delusional material. He denies side effects from medications. He has no physical complaints. I believe the patient is in need of ongoing hospitalization for several reasons: Firstly, the patient does seem improved today but has previously displayed symptomatic improvement with subsequent reversal and relapse to severe psychosis and so further observation is prudent to ensure that patient's improvement persists. Secondly, the patient remains on a robust dose of oral Ativan added initially for possible agitated catatonia. Ideally, this would be tapered away prior to discharge to ensure that the patient does not relapse to agitated catatonia when this is discontinued and to ensure that he does not experience significant withdrawal. Finally, the patient still has elevated CK and has continued to require IV fluids for management of this issue. Patient is declining voluntary hospitalization and requesting discharge today. Having no basis to retain the patient over his objection, I will discharge him AGAINST MEDICAL ADVICE. Psychiatric follow-up as arranged by counselor. Patient is also to follow with primary care. Patient to return to psychiatric emergency room for any concerning symptoms as part of a general safety plan. - Discharge Discharge Date: 12/29/17 - Discharge Diagnosis (1) Brief psychotic disorder Diagnosis: Principal Code(s): F23 - Brief psychotic disorder Status: Acute (2) Cannabis abuse Diagnosis: Secondary (Counseled to quit) Code(s): F12.10 - Cannabis abuse, uncomplicated Status: Chronic Discharge Disposition: AMA - Discharge Instructions Discharge Diet: Regular Diet Activities You Can Perform: Weight Bearing As Tolerat - Discharge Time > 30 minutes Mental Status Examination Appearance: Appropriate (Fair grooming) Consciousness: Alert Orientation: Person, Place Motor Activity: Other (No motor abnormalities noted) Speech: Unremarkable Language: Adequate Fund of Knowledge: Adequate Attention and Concentration: Adequate Memory: Unremarkable Mood: Appropriate Affect: Flat Thought Process & Associations: Circumstantial Thought Content: Hallucinations Hallucination Type: Other (Denies AVH but appears somewhat internally stimulated ) Delusion Type: None Suicidal Ideation: No Suicidal Plan: No Suicidal Intention: No Homicidal Ideation: No Homicidal Plan: No Homicidal Intention: No Insight: Poor Judgment: Poor Discharge/Advance Care Plan - Results Vital Signs: Last Vital Signs Temp 98.2 F 12/29/17 06:16 Pulse 80 12/29/17 06:16 Resp 17 12/29/17 06:16 BP 132/96 H 12/29/17 06:16 Pulse Ox 98 12/29/17 06:16 Lab Results: Abnormal Lab Results 12/29/17 08:25 Sodium 137 Potassium 3.4 L Chloride 103 Carbon Dioxide 24.6 Anion Gap 9 BUN 7 Creatinine 1.04 Estimated GFR Greater than 89 Random Glucose 122 H Calcium 8.9 Total Creatine Kinase 1632 H CK-MB (CK-2) 1.2 CK-MB (CK-2) % 0.1 Laboratory Results Hemoglobin A1c 5.6 % (4.3-6.0) 12/19/17 07:25 Triglycerides 65 mg/dL (42-150) 12/19/17 07:25 Cholesterol 225 mg/dL (120-200) H 12/19/17 07:25 LDL Cholesterol, Calc 164 mg/dL (0-99) H 12/19/17 07:25 HDL Cholesterol 47.7 mg/dL (40.0-60.0) 12/19/17 07:25 TSH 0.848 uIU/mL (0.358-3.740) 12/19/17 07:25 Urine Culture Comments Culture not ind 12/22/17 11:05 Summary of Procedures: None done Imaging: ITS Impressions Head CT 12/21/17 00:00 CONCLUSION: 1. Negative for an acute process. . Pending Results: None - Medications Number of antipsychotic medications at discharge: 1 - Discharge Care Plan Goals to Promote Your Health: * To prevent worsening of your condition and complications * To maintain your health at the optimal level Directions to Meet Your Goals: Take your medications as prescribed Follow your dietary instruction Follow activity as directed Keep your appointments as scheduled Take your immunizations and boosters as scheduled If your symptoms worsen call your PCP, if no PCP go to Urgent Care Center or Emergency Room For 11/10 questions related to your inpatient stay or results of tests pending at discharge, please contact Dr. Eric Alexander MD at [phone] Smoking is Dangerous to Your Health. Avoid second hand smoking
--- NOTE | 2017-12-29 14:11 | P.PN ---
Subjective Interval history: Patient with rhabdomyolysis, elevated blood pressure. Patient seen and examined. Patient is going to be discharged from psych facility today. Patient denies any complaints. Reports good urine output. He denies any muscle cramping. Physical Exam Vital signs: Vital Signs 12/28/17 16:35 12/29/17 06:16 Temperature 98.5 F 98.2 F Pulse Rate 82 80 Respiratory Rate 18 17 Blood Pressure 148/97 H 132/96 H Pulse Oximetry 98 98 Intake & Output 12/28/17 12/29/17 12/29/17 18:59 06:59 18:59 Intake Total 1999 2570 / 2570 1000 / 1000 Balance 1999 2570 / 2570 1000 / 1000 Weight 120.4 kg Intake: IV 1999 2570 / 2570 1000 / 1000 NS Inj 1,000 ML @ 250 mls/hr IV 1999 2570 / 2570 1000 / 1000 .CONT .Q4H [facility] Rx#:[id number] Narrative: GENERAL: Well-developed well-nourished -[place]ritrean male patient, no acute distress. Awake and alert. Appears comfortable. HEENT: Normocephalic, atraumatic. PERRLA. No nasal drainage. Airway patent. Moist mucous membranes CARDIOVASCULAR: Normal rate and regular rhythm without murmurs, gallops, or rubs. RESPIRATORY: Clear to auscultation bilaterally. Good air entry. GASTROINTESTINAL: Abdomen soft, non-tender, non-distended. Normal active bowel sounds. MUSCULOSKELETAL: Extremities without cyanosis or edema. NEURO: Alert and oriented. Cranial II-XII grossly intact. Moves all extremities spontaneously. Nonfocal. Normal speech. PSYCH: Calm and cooperative. Results - Labs CBC & Chem 7: 12/25/17 09:15 12/29/17 08:25 Laboratory Results - last 24 hr 12/29/17 08:25 Sodium 137 Potassium 3.4 L Chloride 103 Carbon Dioxide 24.6 Anion Gap 9 BUN 7 Creatinine 1.04 Estimated GFR Greater than 89 Random Glucose 122 H Calcium 8.9 Total Creatine Kinase 1632 H CK-MB (CK-2) 1.2 CK-MB (CK-2) % 0.1 Assessment and Plan - Assessment (1) Elevated blood pressure reading Code(s): R03.0 - Elevated blood-pressure reading, without diagnosis of hypertension Status: Acute (2) Rhabdomyolysis Code(s): M62.82 - Rhabdomyolysis Status: Acute (3) Unspecified psychosis Code(s): F29 - Unspecified psychosis not due to a substance or known physiological condition Status: Acute - Plan 27-year-old male admitted to the psychiatric unit for psychosis. Found to have elevated blood pressure. Patient reports he was told he had borderline hypertension in the past but he never took any medications. Psychosis - Management per psychiatry, On Zyprexa Possible untreated hypertension, initially 180s -Blood pressure improved, continue with Norvasc 10 mg p.o. daily. Patient refuses medication intermittently. He was agreeable to taking Norvasc today. BP likely elevated at least in part by IVF. -Continue Clonidine as needed for blood pressure greater than 180/100. -Continue to monitor BP and adjust treatment accordingly 12/29 BP improved Rhabdomyolysis poss secondary to psychosis and agitation, illegal drug use ( UDT + cannabis) CPK trending up, 3338 Renal function stable, good UOP -CPK improved, 2174. Patient went without IVF yesterday for about 4hrs after pulling out IV and then turned the rate down to 150ml/hr himself sometime last night. He is agreeable to continuing IVF for now. Will increase rate and recheck CK in am. Cr remains stable. Monitor renal function Encourage p.o. fluids 12/29 CPK improved to 1632. IVF discontinued. Patient advised to continue to drink plenty of fluids and stay well-hydrated. Hypokalemia, mild K 3.4 -po repletion ordered DVT prophylaxis -Patient is ambulatory Patient appears stable from hospitalist standpoint. [facility] will sign off. Please reconsult if needed Code Status: Full Discussed Condition With: patient, nursing staff (3) Unspecified psychosis Qualifiers: Psychosis type: unspecified psychosis type Qualified Code(s): F29 - Unspecified psychosis not due to a substance or known physiological condition
[2017-12-29] MEDS: Haloperidol 5 MG Tablet PO SCH (14:22)
== END 2017-12-29 15:20 | disposition left against medical advice (07) ==
LOC: H260 13:58 → H270 15:43
PROVIDERS: ADMIT Psychiatry & Neurology Psychiatry; ATTEND Psychiatry & Neurology Psychiatry